=== PATIENT | male | born 1945 | race Caucasian/White ===

== ENCOUNTER 2021-04-15 08:40 | Day surgery (SDC) | payer MEDICARE, BC ==
[2021-04-15] MEDS: Lactated Ringers 1,000 ML IV SCH (09:15)
[2021-04-15] MEDS ORDERED: fentaNYL 100 MCG/2 ML SDV ONE (10:59)
[2021-04-15] MEDS ORDERED: Propofol 200 MG/20 ML SDV ONE (10:59)
[2021-04-15 13:37] VITALS: BP 119/70; PULSE 65
--- NOTE | 2021-04-16 08:09 | OR ---
SURGERY DATE: 04/15/2021. REFERRING PROVIDER: Leslie Barron MD PRE-OPERATIVE DIAGNOSIS: Dysphagia, which has been ongoing for months. The patient reports trouble with eating any meats, except maybe beef. Symptoms have been a little bit better lately. Of note, the patient does have a grandson with history of eosinophilic esophagitis, who lives in [place]. POST-OPERATIVE DIAGNOSES: 1. 3 cm sliding-type hiatal hernia with presence of Schatzki's ring. This was dilated with balloon in sequential fashion from 15 mm to 16.5 mm. The patient had some [id number]-[id number]-dovr blood loss with dilation. 2. Minimal antritis noted. Cold biopsy x2 bites taken for path and Helicobacter pylori. PROCEDURE: Esophagogastroduodenoscopy with balloon dilation of Schatzki's ring and cold biopsy x1 site (antrum). SURGEON: Lance Jones M.D. ANESTHESIA: Monitored anesthesia care. Talib is a 75-year-old male who was brought to the endoscope suite after discussion of risks and benefits (including but not limited to reaction to medication, bleeding, infection, aspiration, perforation). Informed consent was obtained for monitored anesthesia care and esophagogastroduodenoscopy along with possible biopsy and/or dilatation. Pre-procedure exam including oral cavity was unremarkable. IV, oxygen, and monitors were placed. Patient was placed in the left lateral position and sedation was administered. A bite block was placed gently and scope lightly lubricated and passed through the bite block and over the tongue. Hypopharynx and vocal cords were visualized and unremarkable. Scope was passed through the cricopharynx and into the esophagus. The scope was then passed through the distal esophagus and the GE junction was visualized and photographed. The GE junction was remarkable for a 3 cm sliding-type hiatal hernia with Schatzki's ring present. On the way out, this was dilated with a balloon in a sequential fashion from 15 mm up to 16.5 mm. Some uwdnylw-gm-xofr blood loss was noted, but no ongoing bleeding after the procedure. Vocal cords were visualized and unremarkable. The scope was advanced into the stomach and gastric hsu was suctioned. Pylorus was identified and intubated and then the scope was advanced to the third portion of the duodenum. The second portion of the duodenum was unremarkable. The duodenal bulb was visualized and unremarkable. The scope was brought back into the stomach. The pylorus and the antrum were remarkable for some minimal antritis. Cold biopsy x2 bites taken for path and H pylori. The scope was then retroflexed to visualize the angularis, fundus, body, and cardia. These were unremarkable. The stomach was desufflated of air and then the scope was slowly withdrawn, and the esophagus was closely visualized during withdrawal all the way into the posterior pharynx and was normal in appearance. The patient tolerated the procedure well and went to recovery in stable condition. The patient was monitored until at baseline status. Findings and discharge instructions were reviewed and the patient was discharged in good condition. COMPLICATIONS: None. TOTAL TIME: 13 minutes. ESTIMATED BLOOD LOSS: 1 to 2 mL. RECOMMENDATIONS/FOLLOW-UP: We will await results of path report and send letter with these. I would like the patient to start on omeprazole 20 mg daily for at least 6 to 8 weeks to help prevent recurrence of the Schatzki's ring. Prescription has been provided. I would like to kindly thank Dr. Barron for this referral. DMB: 04/15/2021 14:03:19 MODL: 04/15/2021 15:33:46 /[id number]
== END 2021-04-15 13:30 | disposition home or self-care (01) ==
LOC: VM.SDS 08:40
PROVIDERS: ATTEND Family Medicine
DX: K29.60 Other gastritis without bleeding (principal); K44.9 Diaphragmatic hernia without obstruction or gangrene; K22.2 Esophageal obstruction; E78.5 Hyperlipidemia, unspecified; Z86.010 Personal history of colon polyps
CPT/HCPCS: 00731; J2704; J3010; J7120

== ENCOUNTER 2023-02-09 10:13 | Day surgery (SDC) | payer MEDICARE, BC ==
[2023-02-09] MEDS: Lactated Ringers 1,000 ML IV SCH (10:36)
[2023-02-09] MEDS ORDERED: Propofol 200 MG/20 ML SDV ONE ×2 (12:13→12:37)
[2023-02-09] MEDS ORDERED: fentaNYL 100 MCG/2 ML SDV ONE (12:13)
[2023-02-09 13:36] VITALS: BP 101/66; PULSE 68
== END 2023-02-09 14:40 | disposition home or self-care (01) ==
LOC: VM.SDS 10:13
PROVIDERS: ATTEND Family Medicine
DX: Z12.11 Encounter for screening for malignant neoplasm of colon (principal); D12.7 Benign neoplasm of rectosigmoid junction; D12.0 Benign neoplasm of cecum; D12.6 Benign neoplasm of colon, unspecified; K57.30 Diverticulosis of large intestine without perforation or abscess without bleeding; E78.2 Mixed hyperlipidemia; K22.2 Esophageal obstruction; M35.3 Polymyalgia rheumatica; R35.1 Nocturia; Z88.5 Allergy status to narcotic agent; Z90.89 Acquired absence of other organs; Z85.820 Personal history of malignant melanoma of skin; Z90.49 Acquired absence of other specified parts of digestive tract; Z87.891 Personal history of nicotine dependence; Z86.010 Personal history of colon polyps; Z83.71 Family history of colonic polyps
CPT/HCPCS: 00811; 45380; 45385; 88305; J2704; J3010; J7120